=== PATIENT | female | born 1995 | race Caucasian/White ===

== ENCOUNTER → 2021-05-15 | Outpatient (CLI) | payer OTHER ==
[~2021-05-15] MED LIST: E-Z-PAQUE 96% w/w SUSP 176GM BTL As Ordered ONE
== END ==
LOC: M RAD 08:21
PROVIDERS: ATTEND Internal Medicine Gastroenterology
DX: Z53.9 Procedure and treatment not carried out, unspecified reason (principal)

== ENCOUNTER → 2021-05-31 | Outpatient (CLI) | payer OTHER ==
--- NOTE | 2021-05-31 16:17 | REP ---
INDICATION: NAUSEA VOMITING. COMPARISON: None. TECHNIQUE: Transitional Care Liaison film abdomen and pelvis is unremarkable. Barium was ingested for small-bowel series. FINDINGS: Stomach distends well, the duodenal bulb and sweep are unremarkable in appearance. The small bowel loops demonstrate normal mucosal folds with no thickening or filling defects. No stricture is seen. There is normal transit time, the right colon is visualized between 30 and 60 minutes. The terminal ileum appears normal. There is no abnormal displacement of the small bowel loops. IMPRESSION: Unremarkable small bowel series. Fluoroscopy time 0.8 minutes. <Electronically signed by Douglas Sadler > 05/31/21 [id number]
== END ==
LOC: M RAD 10:28
PROVIDERS: ATTEND Internal Medicine Gastroenterology
DX: R11.2 Nausea with vomiting, unspecified (principal)

== ENCOUNTER → 2021-09-26 | Outpatient (REF) | payer OTHER | LOC: M WUC 12:09 | PROVIDERS: ATTEND Physician Assistant | DX: R30.0 Dysuria (principal) ==